=== PATIENT | male | born 1950 | race Caucasian/White ===

== ENCOUNTER 2018-03-09 09:31 | Emergency (ER) | payer MEDICARE ==
[~2018-03-09] VITALS: Ht 180.3 cm; Wt 90.0 kg
[2018-03-09] MEDS ORDERED: ASPI-515 PO (09:53)
[2018-03-09] MEDS ORDERED: ATORVASTATIN (09:53)
[2018-03-09] MEDS ORDERED: LABETALOL (09:53)
[2018-03-09] MEDS ORDERED: DOXYCYCLINE (09:53)
[2018-03-09] MEDS ORDERED: ONDANSETRON 2MG/ML, 2ML IVPush ONE (10:00)
[2018-03-09] MEDS ORDERED: PLEASE ENTER ALLERGIES MC SCH (10:00)
[2018-03-09] MEDS ORDERED: MORPHINE SULFATE 4 MG/ML, 1ML IVPush ONE ×2 (10:00→12:30)
[2018-03-09] MEDS ORDERED: PLEASE ENTER HEIGHT AND WEIGHT MC SCH (10:00)
[2018-03-09] MEDS ORDERED: MORPHINE SULFATE 4 MG/ML, 1ML ONE ×2 (10:08→12:24)
[2018-03-09] MEDS ORDERED: ONDANSETRON ODT 4 MG ONE (10:08)
[2018-03-09] MEDS ORDERED: ONDANSETRON 2MG/ML, 2ML ONE (10:08)
[2018-03-09 12:18] VITALS: BP 120/93
== END 2018-03-09 14:07 | disposition home or self-care (01) ==
LOC: ED 13:30
DX: M75.121 Complete rotator cuff tear or rupture of right shoulder, not specified as traumatic (principal); E78.5 Hyperlipidemia, unspecified; Z85.038 Personal history of other malignant neoplasm of large intestine
CPT/HCPCS: 73030; 73221; 96374; 96375; 96376; 99284; J2405